=== PATIENT | male | born 1975 | race Caucasian/White ===

== ENCOUNTER 2017-01-14 17:33 | Emergency (ER) | payer SELFPAY ==
[~2017-01-14] VITALS: Ht 180.3 cm; Wt 145.4 kg
[~2017-01-14 17:33] MED LIST: (None)3.5 GM OS; AMOX/K CLAV875 M1 PO; AMOXICILLIN500 MG PO; BACTRIM DS1 TAB OR; BACTRIM DS1 TAB PO; CEPHALEXIN500 MG OR; FLEXERIL10 MG PO; FLONASE NASAL50 MCG; FLOXIN OTIC0.3 % OT; LORTAB 7.5 OR; LORTAB5 OR; LORTAB5 PO; MEDDOSEPAK OR; MEDDOSEPAK PO; NAPROSYN500 MG OR; NAPROSYN500 MG PO; NO CURRENT MEDS; NO HOME MEDS; NO MEDS; ONDANSETRON4 MG PO; PENICILLN VK500 M1 OR; PRILOSEC OTC20 MG OR; ULTRAM50 M1 PO; ULTRAM50 MG OR; [UNRECOGNIZED DRUG - OTHER] PO
[2017-01-14] MEDS ORDERED: TOBRAMYCIN0.3 % OS (17:49)
[2017-01-14 18:00] VITALS: BP 136/78
== END 2017-01-14 18:08 | disposition home or self-care (01) | DRG 115 ==
LOC: ED 17:33
PROC: 08C9XZZ Extirpation of Matter from Left Cornea, External Approach (ICD-10-PCS; principal; 2017-01-14)
DX: T15.02XA Foreign body in cornea, left eye, initial encounter (principal); X58.XXXA Exposure to other specified factors, initial encounter

== ENCOUNTER 2017-08-27 23:34 | Emergency (ER) | payer SELFPAY ==
[~2017-08-27] VITALS: Ht 180.3 cm; Wt 143.8 kg
[~2017-08-27 23:34] MED LIST changes: +TOBRAMYCIN0.3 % OS
[2017-08-28] MEDS ORDERED: GENTAMICIN15 ML/BTL OD (00:06)
[2017-08-28] MEDS ORDERED: (None)3.5 GM OD (00:06)
[2017-08-28 00:10] VITALS: BP 165/97
== END 2017-08-28 00:10 | disposition home or self-care (01) | DRG 115 ==
LOC: ED 23:34
PROC: 08C8XZZ Extirpation of Matter from Right Cornea, External Approach (ICD-10-PCS; principal; 2017-08-28)
DX: T15.01XA Foreign body in cornea, right eye, initial encounter (principal); X58.XXXA Exposure to other specified factors, initial encounter; Y93.89 Activity, other specified

== ENCOUNTER 2018-02-19 14:05 | Emergency (ER) | payer SELFPAY ==
[~2018-02-19] VITALS: Ht 180.3 cm; Wt 140.0 kg
[~2018-02-19 14:05] MED LIST changes: +(None)3.5 GM OD; +GENTAMICIN15 ML/BTL OD
[2018-02-19] MEDS ORDERED: AMOXICILLIN500 M2 PO (14:20)
[2018-02-19] MEDS ORDERED: CORTISPORIN OTI10 ML AD (14:20)
[2018-02-19 14:30] VITALS: BP 151/99
== END 2018-02-19 14:30 | disposition home or self-care (01) | DRG 153 ==
LOC: ED 14:05
DX: H66.91 Otitis media, unspecified, right ear (principal); H60.91 Unspecified otitis externa, right ear; F17.290 Nicotine dependence, other tobacco product, uncomplicated

== ENCOUNTER 2019-07-05 09:15 | Emergency (ER) | payer SELFPAY ==
[~2019-07-05 09:15] MED LIST changes: +AMOXICILLIN500 M2 PO; +CORTISPORIN OTI10 ML AD
== END 2019-07-05 09:55 | disposition left against medical advice (07) | DRG 951 ==
LOC: ED 09:15 → LWOBS 09:54
DX: Z53.21 Procedure and treatment not carried out due to patient leaving prior to being seen by health care provider (principal)

== ENCOUNTER 2023-08-01 12:44 | Observation (INO) | payer SELFPAY ==
[~2023-08-01] VITALS: Ht 180.3 cm; Wt 139.0 kg
[2023-08-01] VITALS (15 sets, daily range): BP systolic 126–178; BP diastolic 58–95
[2023-08-01 13:39] LABS: BASO% 0.2 % (0-3); EOS% 1.1 % (0-8); HEMATOCRIT 42.8 % (39.0-50.0); IMMATURE GRANULOCYTES 0.1 % (0.0-5.0); MEAN CELL VOLUME 82.8 fL CALC (80.0-100.0); MEAN CORPUSCULAR HGB 27.1 pG CALC (26.0-32.0); MEAN CORPUSCULAR HGB CONC 32.7 g/dL CAL (32.0-36.0); NEUT# 10.43 thou/uL (1.82-7.42); NEUT% 78.6 % (42-76); RED BLOOD COUNT 5.17 mill/uL (4.70-6.10); RED CELL DISTRI WIDTH 12.6 % (11.5-15.5)
[2023-08-01 13:40] LABS: ALBUMIN 4.3 g/dL (3.2-5.0); ALKALINE PHOSPHATASE 84 u/l (38-126); ANION GAP 12 (6-22 (CALC)); BILIRUBIN, TOTAL 0.3 mg/dL (0.2-1.3); BUN 6 mg/dL (9-20); BUN/CREATININE RATIO 11 (12-20 (CALC)); CARBON DIOXIDE 26 mmol/l (22-30); CHLORIDE 102 mmol/l (95-108); CREATININE 0.5 mg/dL (0.7-1.3); GFR FOR AFR.AMER. > 60 ML/MIN (>=60 (CALC)); GFR OTHER RACES > 60 ML/MIN (>=60 (CALC)); SGOT/AST 28 u/l (17-59); SODIUM 136 mmol/l (137-146); TOTAL PROTEIN 7.7 g/dL (6.3-8.2)
[2023-08-02 00:22] VITALS: BP 152/96
[2023-08-02 04:39] VITALS: BP 156/71
[2023-08-02 06:10] LABS: ALBUMIN 3.7 g/dL (3.2-5.0); ALKALINE PHOSPHATASE 82 u/l (38-126); ANION GAP 9 (6-22 (CALC)); BUN 8 mg/dL (9-20); BUN/CREATININE RATIO 14 (12-20 (CALC)); CARBON DIOXIDE 29 mmol/l (22-30); CHLORIDE 103 mmol/l (95-108); CREATININE 0.6 mg/dL (0.7-1.3); GFR FOR AFR.AMER. > 60 ML/MIN (>=60 (CALC)); GFR OTHER RACES > 60 ML/MIN (>=60 (CALC)); MAGNESIUM 1.8 mg/dL (1.6-2.3); SGOT/AST 20 u/l (17-59); SODIUM 137 mmol/l (137-146); TOTAL PROTEIN 6.7 g/dL (6.3-8.2)
[2023-08-02 06:42] VITALS: BP 157/74
[2023-08-02 06:44] LABS: BILIRUBIN, TOTAL 0.5 mg/dL (0.2-1.3)
[2023-08-02 07:39] LABS: HEMATOCRIT 40.2 % (39.0-50.0); HEMOGLOBIN 13.5 g/dl (14.0-18.0); MEAN CELL VOLUME 82.4 fL CALC (80.0-100.0); MEAN CORPUSCULAR HGB 27.7 pG CALC (26.0-32.0); MEAN CORPUSCULAR HGB CONC 33.6 g/dL CAL (32.0-36.0); RED BLOOD COUNT 4.88 mill/uL (4.70-6.10); RED CELL DISTRI WIDTH 12.9 % (11.5-15.5)
[2023-08-02 10:54] VITALS: BP 144/77
[2023-08-02] MEDS ORDERED: METFORMIN500 M2 PO (12:44)
[2023-08-02] MEDS ORDERED: HUMALOG100 UNIT/M SC (12:53)
[2023-08-02] MEDS ORDERED: ACCU-CHEK FASTCLIX L XX (12:55)
== END 2023-08-02 13:53 | disposition home or self-care (01) | DRG 313 ==
LOC: ED 12:44 → ED-I 13:50 → ED 14:11 → ED-I 14:12 → MS2 14:12
PROVIDERS: Nurse Practitioner; ADMIT Student in an Organized Health Care Education/Training Program; ATTEND Student in an Organized Health Care Education/Training Program
DX: R07.9 Chest pain, unspecified (principal); E11.9 Type 2 diabetes mellitus without complications; F17.200 Nicotine dependence, unspecified, uncomplicated
CPT/HCPCS: G0378; J1650

== ENCOUNTER 2024-02-27 07:16 | Emergency (ER) | payer SELFPAY ==
[~2024-02-27] VITALS: Ht 182.9 cm; Wt 132.0 kg
[~2024-02-27 07:16] MED LIST changes: +ACCU-CHEK FASTCLIX L XX; +HUMALOG100 UNIT/M SC; +METFORMIN500 M2 PO
[2024-02-27 08:29] VITALS: BP 135/81
[2024-02-27] MEDS ORDERED: ZPAK PO ×2 (08:33→08:35)
== END 2024-02-27 08:30 | disposition home or self-care (01) | DRG 153 ==
LOC: ED 07:16
DX: J06.9 Acute upper respiratory infection, unspecified (principal); E66.9 Obesity, unspecified; E11.9 Type 2 diabetes mellitus without complications; F17.200 Nicotine dependence, unspecified, uncomplicated; Z79.4 Long term (current) use of insulin; Z79.84 Long term (current) use of oral hypoglycemic drugs; Z20.822 Contact with and (suspected) exposure to COVID-19

== ENCOUNTER 2024-08-07 07:15 | Emergency (ER) | payer SELFPAY ==
[~2024-08-07] VITALS: Ht 182.9 cm; Wt 145.0 kg
[~2024-08-07 07:15] MED LIST changes: +NAPROXEN500 MG PO; +TANLOR1000 MG PO; +ZPAK PO
[2024-08-07 07:57] LABS: BASO% 0.3 % (0-3); EOS% 3.3 % (0-8); HEMATOCRIT 44.1 % (39.0-50.0); HEMOGLOBIN 14.5 g/dl (14.0-18.0); IMMATURE GRANULOCYTES 0.2 % (0.0-5.0); LYMPH% 19.3 % (15-41); MEAN CELL VOLUME 83.2 fL CALC (80.0-100.0); MEAN CORPUSCULAR HGB 27.4 pG CALC (26.0-32.0); MEAN CORPUSCULAR HGB CONC 32.9 g/dL CAL (32.0-36.0); NEUT# 6.63 thou/uL (1.82-7.42); NEUT% 69.9 % (42-76); RED BLOOD COUNT 5.3 mill/uL (4.70-6.10); RED CELL DISTRI WIDTH 12.8 % (11.5-15.5)
[2024-08-07 08:06] LABS: ALBUMIN 4.2 g/dL (3.2-5.0); BILIRUBIN, TOTAL 0.5 mg/dL (0.2-1.3); CREATININE 0.6 mg/dL (0.7-1.3); POTASSIUM 4.2 mmol/l (3.5-5.1); TOTAL PROTEIN 7.5 g/dL (6.3-8.2)
[2024-08-07 08:49] LABS: URINE BILIRUBIN - DIPSTICK Negative (NEGATIVE); URINE BLOOD DIPSTICK Negative (NEGATIVE); URINE GLUCOSE - DIPSTICK 250 mg/dL (NEGATIVE); URINE KETONE Negative (NEGATIVE); URINE LEUK ESTERASE Negative (NEGATIVE); URINE NITRITE - DIPSTICK Negative (Negative); URINE PH 5.5 (4.5-8.0); URINE PROTEIN - DIPSTICK Trace mg/dL (NEG-TRACE); URINE SPECIFIC GRAVITY >=1.030; URINE UROBILINOGEN - DIPSTICK 0.2 E.U./dL (0.2)
[2024-08-07 09:42] LABS: URINE COLOR Yellow
[2024-08-07] MEDS ORDERED: MOTRIN800 MG PO (09:45)
[2024-08-07] MEDS ORDERED: MIRALAX17 GM PO (09:45)
[2024-08-07] MEDS ORDERED: COLACE100 MG PO (09:45)
[2024-08-07 09:48] VITALS: BP 158/68
== END 2024-08-07 09:55 | disposition home or self-care (01) | DRG 552 ==
LOC: ED 07:15
PROVIDERS: Emergency Medicine
DX: M54.9 Dorsalgia, unspecified (principal); K59.00 Constipation, unspecified; E11.9 Type 2 diabetes mellitus without complications; F17.200 Nicotine dependence, unspecified, uncomplicated